=== PATIENT | male | born 1955 | race Two or more races ===

== ENCOUNTER 2019-10-14 14:51 | Emergency (ER) | payer SELFPAY ==
[~2019-10-14] VITALS: Ht 185.4 cm; Wt 91.0 kg
[2019-10-14 14:54] VITALS: BP 110/66
--- NOTE | 2019-10-14 19:43 | NUR ---
Discharged at 1900. Unable to log in until now (1942) to complete discharge in computer
== END 2019-10-14 19:44 | disposition home or self-care (01) ==
LOC: ED 16:55
DX: M54.31 Sciatica, right side (principal); R20.0 Anesthesia of skin; Z85.038 Personal history of other malignant neoplasm of large intestine
CPT/HCPCS: 72110; 99283